=== PATIENT | female | born 1990 | race Caucasian/White ===

== ENCOUNTER 2017-12-15 23:27 | Emergency (ER) | payer SELFPAY ==
[2017-12-16 00:19] LABS: Bilirubin Negative (Negative); Blood, Urine Moderate (Negative); Clarity CLOUDY (Clear); Glucose, Urine (Dipstick) Negative (Negative); Leukocyte Large (Negative); Nitrite Negative (Negative); Protein, Urine (Dipstick) 30 mg/dL (Neg-Trace); Specific Gravity, Urine 1.017 (1.002-1.036)
[2017-12-16 00:20] LABS: Pregnancy Test - Urine (BHCG) Negative (Negative); Pregu Control Background? CLEAR/WHITE (CLR/WHITE); Pregu Control Bar Appear? YES (CONTROL BAR); Specific Gravity 1.017 (1.002-1.036)
[2017-12-16 00:22] LABS: Bacteria/HPF 4+ HPF (None Seen); Pathc Cast-AUWi Flag 1.25 (0-2.49); Squamous Epithelial 0-3 HPF (0-3)
[2017-12-16 00:23] LABS: Hyaline Casts/LPF 0-3 HYALINE CAST LPF (0-3 Hyaline)
[2017-12-16 00:35] LABS: #Lymphocytes 1.3 thou/uL (1.20-3.40); #Monocytes 0.9 thou/uL (0.11-0.59); #Neutrophils 5.2 thou/uL (1.40-6.50); %Basophils 0.1 % (0.0-1.0); %Eosinophils 0.3 % (0.0-10.0); %Lymphocytes 17.1 % (21.0-51.0); %Monocytes 11.9 % (0.0-10.0); %Neutrophils 70.7 % (42.0-75.0); Hemoglobin 10.3 g/dL (12.0-16.0); Mean Corpuscular HGB CONC 32.5 g/dL (32.0-36.0); Mean Corpuscular Volume 83.1 fL (78.0-98.0); Mean Platelet Volume 6.2 fL (7.4-10.4); Platelet Count 224 thou/uL (130-400); RBC Distribution Width 13.9 % (11.5-14.5); Red Blood Cell (RBC) Count 3.83 mill/uL (4.20-5.40); White Blood Cell (WBC) Count 7.3 thou/uL (4.8-10.8)
[2017-12-16 00:51] LABS: ALT (SGPT) 12 U/L (8-55); AST (SGOT) 8 U/L (5-34); Albumin 3.7 g/dL (3.5-5.0); Alkaline Phosphatase 69 U/L (40-150); Anion Gap 10 mmol/L (10-20); BUN (Urea Nitrogen) 10 mg/dL (7.0-18.7); Bilirubin, Total 0.8 mg/dL (0.2-1.2); Calc. Creatinine Clearance 0 mL/min (70-130); Calcium 8.8 mg/dL (7.8-10.44); Carbon Dioxide 29 mmol/L (22-29); Chloride 100 mmol/L (98-107); Estimated GFR-MDRD Greater than 90; Globulin 3.1 g/dL (2.4-3.5); Glucose 96 mg/dL (70-105); Potassium 3.2 mmol/L (3.5-5.1); Protein, Total 6.8 g/dL (6.0-8.3); Sodium 136 mmol/L (136-145)
[2017-12-16] MEDS ORDERED: Ondansetron ODT 8 MG TAB ONE (01:39)
[2017-12-16] MEDS ORDERED: Morphine 4 MG/ML VIAL ONE (01:39)
[2017-12-16] MEDS ORDERED: Ketorolac Tromethamine 30 MG/ML VIAL ONE (01:39)
[2017-12-16] MEDS ORDERED: cefTRIAXone\\ROCEPHIN 1 GM VIAL ONE (01:39)
[2017-12-16] MEDS ORDERED: cefTRIAXone\\ROCEPHIN 1 GM in Sodium Chloride 0.9% 100 ML IVPB SCH (02:00)
--- NOTE | 2017-12-16 09:42 | CT ---
PRELIMINARY REPORT/[facility]/EMERGENTY AFTER-HOURS PROCEDURE CT Abdomen and Pelvis Without Intravenous Contrast CLINICAL HISTORY: 27 years old, female; Pain; Abdominal pain; Flank; Right; Prior surgery; Patient HX: Eval for possibl e kidney stones, PT C/O right flank pain TECHNIQUE: Axial computed tomography images of the abdomen and pelvis without intravenous contrast. Coronal refo rmatted images were created and reviewed. COMPARISON: No relevant prior studies available. FINDINGS: Lower thorax: No acute findings. ABDOMEN: Liver: Normal. No mass. Gallbladder and bile ducts: Normal. No calcified stones. No ductal dilation. Pancreas: Normal. No ductal dilation. Spleen: Borderline splenomegaly. Adrenals: Normal. No mass. Kidneys and ureters: Inflammation of the lower right kidney with urothelial thickening of the right r enal pelvis, compatible with pyelonephritis. No urolithiasis hydroureteronephrosis. Stomach and bowel: No bowel wall thickening or intestinal obstruction. Appendix: Normal appendix. PELVIS: Bladder: Mild diffuse thickening of the wall of the urinary bladder may signify cystitis. Reproductive: Uterus and ovaries are unremarkable. ABDOMEN and PELVIS: Intraperitoneal space: Normal. No free air. No significant fluid collection. Bones/joints: No acute fracture. No dislocation. Soft tissues: Unremarkable. Vasculature: Normal. No abdominal aortic aneurysm. Lymph nodes: Normal. No enlarged lymph nodes. IMPRESSION: 1. Mild diffuse thickening of the wall of the urinary bladder may signify cystitis. 2. Right pyelonephritis. 3. Borderline splenomegaly. Thank you for allowing us to participate in the care of your patient. Dictated and Authenticated by: Fred Pederson MD 12/16/2017 1:25 AM Central Time ([place] & [place]) FINAL REPORT CT ABDOMEN AND PELVIS NONCONTRAST: DATE: 12/16/17. TIME: Performed on an emergency basis at 0035 hours. HISTORY: Flank pain. FINDINGS: Agree with the preliminary report by Dr. Pederson from [facility]. No CT evidence of urinary t ract obstruction or calcification. Lack of contrast decreases the sensitivity of exam for other abno rmalities. Stranding within the right retroperitoneal fat is nonspecific but could reflect inflammat ion of the right kidney. Clinical correlation regarding other signs and symptoms of right pyelonephr itis is required. POS: [facility]
== END 2017-12-16 02:58 | disposition home or self-care (01) ==
LOC: ERS 23:27
DX: N12 Tubulo-interstitial nephritis, not specified as acute or chronic (principal); F17.210 Nicotine dependence, cigarettes, uncomplicated
CPT/HCPCS: 36415; 74176; 80053; 81003; 81015; 81025; 85025; 96361; 96365; 96375; J0696; J1885; J2270; J7050